=== PATIENT | female | born 1960 | race Caucasian/White ===

== ENCOUNTER → 2020-08-12 | Outpatient (CLI) | payer BC, OTHER ==
[~2020-08-12] MED LIST: AMLODIPINE BESYL5 MG PO; ELIQUIS2.5 MG PO; GABAPENTIN300 MG PO; IBUPROFEN600 MG PO; LEXAPRO10 MG PO; MELOXICAM7.5 MG PO; PERCOCET 7.5-31 EACH PO; PROTONIX 40 MG40 M1 PO; TELMISARTAN40 MG PO
== END ==
LOC: KOH-I 11:41
DX: M51.16 Intervertebral disc disorders with radiculopathy, lumbar region (principal)
CPT/HCPCS: 72100

== ENCOUNTER → 2021-07-26 | Outpatient (CLI) | payer BC ==
[2021-07-26 06:37] LABS: HEMOGLOBIN 14.9 gm/dl (12.3-15.3); RED BLOOD COUNT 4.59 M/UL (4.00-5.10); WHITE BLOOD COUNT 7.5 K/UL (4.5-11.0)
[2021-07-26 07:11] LABS: BUN/CREATININE RATIO 20 (0-10)
== END ==
LOC: LAB 06:21
PROVIDERS: Internal Medicine
DX: I10 Essential (primary) hypertension (principal); F17.200 Nicotine dependence, unspecified, uncomplicated; G89.29 Other chronic pain; K21.9 Gastro-esophageal reflux disease without esophagitis; M51.16 Intervertebral disc disorders with radiculopathy, lumbar region
CPT/HCPCS: 36415; 80053; 80061; 82607; 82746; 84436; 84443; 85025

== ENCOUNTER → 2021-11-01 | Outpatient (CLI) | payer BC | LOC: US 10-28 09:30 | DX: R10.2 Pelvic and perineal pain (principal); R10.84 Generalized abdominal pain; N28.1 Cyst of kidney, acquired | CPT/HCPCS: 76700; 76830 ==